=== PATIENT | female | born 1965 | race Caucasian/White ===

== ENCOUNTER 2018-11-09 12:07 | Observation (INO) ==
[2018-11-09] MEDS ORDERED: Aspirin 81 MG TAB.CHEW PO ONE (12:22)
--- NOTE | 2018-11-09 12:45 | Emergency Department Note ---
Disposition Clinical Impression: Symptomatic bradycardia, Chest discomfort Disposition: Admitted As Inpatient Condition: Good Forms: ED Satisfaction Letter Time of Disposition: 15:25 General Adult HPI - General Chief complaint: ED Arrhythmia/Palpitations Stated complaint: GOINS,Dizziness,SOB Time Seen by Provider: 11/09/18 12:12 Source: patient Mode of arrival: ambulatory Limitations: no limitations Nursing Notes Reviewed: Yes Vital Signs Reviewed: Yes - History of Present Illness HPI Narrative: Patient is a 53-year-old female that presents emergency Department with reports of chest discomfort in the center of her chest as well as tingling into her arms and neck. Patient states that she has been feeling very fatigued. 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 Patient states that she has no previous cardiac history. Patient is under more stress at her job. Patient states that she was diagnosed with a concussion approximately 3 or 4 weeks ago. Patient states that since then she has been somewhat more fatigued. Patient states that the majority of her symptoms of been significantly worse over the past 3 days. Pain Scale: 0 - Related Data Previous Rx's Medication Instructions Recorded Sulfacetamide Sodium 10% OPTH 1 drop BOTH EYES QID #1 bottle 07/13/15 [Bleph 10] Allergies Allergy/AdvReac Type Severity Reaction Status Date / Time No Known Allergies Allergy Verified 03/15/17 18:35 All systems ED: reviewed and negative except as stated. Constitutional: Denies: fever Cardiovascular: Reports: chest pain. Denies: palpitations Respiratory: Reports: dyspnea Gastrointestinal: Denies: nausea, vomiting Genitourinary: Denies: urgency, dysuria, frequency Neurological: Reports: paresthesias. Denies: weakness, numbness Past Medical History - Past Medical History Medical history: Reports: hypertension Psychiatric history: Reports: no psych history - Social History Smoking Status: Never smoker Smokeless Tobacco Status: No Alcohol use: Reports: occasionally Drug use: Reports: none Physical Exam - General Limitations: no limitations General appearance: alert, in no apparent distress - Head Head exam: atraumatic, normocephalic - Eye Eye exam: Present: normal appearance, EOMI - Neck Neck exam: Present: normal inspection, full ROM, trachea midline - Respiratory Respiratory exam: Present: normal lung sounds bilaterally. Absent: respiratory distress, wheezes - Cardiovascular Cardiovascular exam: Present: regular rate, normal rhythm, normal heart sounds, +S1, +S2 - Abdominal Exam Abdominal exam: Present: soft, Non-Tender, normal bowel sounds - Neurological Exam Neurological exam: Present: alert, oriented X3 - Expanded Neurological Exam Speech: Present: fluid speech Cranial nerves: EOM function (II, III, IV, ): Normal, facial sensation (V): Normal, facial palsy (VII): Normal, gag reflex (IX): Normal, spinal accessory function (XI): Normal, tongue deviation (XII): Normal Cerebellar function: finger to nose: Normal, heel to sheppard: Normal Motor strength - LUE: 5/5 Motor strength - RUE: 5/5 Motor strength - LLE: 5/5 Motor strength - RLE: 5/5 Upper motor neuron exam: pronator drift: Absent bilaterally Sensory exam upper extremity: light touch: Normal Sensory exam lower extremity: light touch: Normal Coma Scale Eye Opening: Spontaneous Coma Scale Motor Response: Obeys Commands Coma Scale Verbal Response: Oriented Coma Scale Total: 15 - Psychiatric Psychiatric exam: Present: normal affect, normal mood - Skin Skin exam: Present: warm, dry, intact Course Vital Signs Temperature 98.1 F 11/09/18 12:20 Pulse Rate 68 11/09/18 12:20 Respiratory Rate 11/09/18 12:20 Blood Pressure 142/91 11/09/18 12:20 O2 Sat by Pulse Oximetry 99 11/09/18 12:20 Temperature 98.1 F 11/09/18 12:20 Pulse Rate 68 11/09/18 12:20 Respiratory Rate 11/09/18 12:20 Blood Pressure 142/91 11/09/18 12:20 O2 Sat by Pulse Oximetry 99 11/09/18 12:20 Oxygen Delivery Oxygen Delivery Room Air Medical Decision Making - [facility] Narrative Medical decision making narrative: Due the patient is not emergency Department with reports of chest discomfort we will obtain basic laboratory testing as well as EKG and chest x-ray. Chest x-ray does not show any acute cardiopulmonary process. The EKG showed a sinus rhythm. However during the patient's stay she did become intermittently bradycardic and during these times of bradycardia is when she had a sensation in her chest and became symptomatic. The patient was placed on pacer pads but was not actively paced. Medications at bedside. We will admit the patient to the hospital for further evaluation and management of her symptomatically tachycardia. Patient does take atenolol in the morning and states that she did take it this morning as well. Called and spoke with cardiology and they will see the patient in consult. Patient will be admitted to the hospital at this time for further evaluation and management. Called and spoke the admitting hospitalist Dr. Barrientos and she is accepted the patient to their service. Patient be admitted to the hospital at this time. - Medical Records Medical records reviewed: Yes I reviewed the patient's medical records. - Lab Data Lab results reviewed: Yes I reviewed the patient's lab results. Result diagrams: 11/09/18 12:30 11/09/18 12:30 Lab Results 11/09/18 11/09/18 11/09/18 Range/Units 12:30 12:30 12:30 WBC 9.4 (4.3-11.1) K/mcL RBC 4.76 (3.82-4.97) M/mcL Hgb 15.3 (11.5-15.4) g/dL Hct 44.4 (35.3-44.9) % MCV 93.3 (83.0-100.0) fL MCH 32.1 (28.0-33.3) pg MCHC 34.5 (31.6-35.5) g/dL RDW 12.7 (11.5-14.5) % Plt Count 237 (140-400) K/mcL MPV 8.8 L (9.4-12.4) fL Immature Gran % 0.2 (0-4) % Seg Neutrophils % 61.1 % Lymphocytes % 26.0 % Monocytes % 10.8 % Eosinophils % 1.4 % Basophils % 0.5 % Neutrophils # 5.7 (1.6-8.9) K/mcL Lymphocytes # 2.4 (0.6-4.6) K/mcL Monocytes # 1.0 (0.0-1.3) K/mcL Eosinophils # 0.1 (0.0-0.6) K/mcL Basophils # 0.1 (0.0-0.2) K/mcL PT 11.8 (9.4-12.1) Seconds INR 1.0 APTT 29.0 (26.0-36.0) Seconds D-Dimer 310 (0-500) ng/mLFEU Carboxyhemoglobin (0-5) % Sodium 141 (136-145) mEq/L Potassium 4.0 (3.5-5.1) mEq/L Chloride 107 (98-107) mEq/L Carbon Dioxide 24 (23-29) mEq/L BUN 14 (6-20) mg/dL Creatinine 0.89 (0.60-1.20) mg/dL Est GFR ( Amer) > 60 (> 60) Est GFR (Non-Af Amer) > 60 (> 60) BUN/Creatinine Ratio 16 (6-26) Glucose 103 (70-105) mg/dL Calculated Osmolality 293 (280-300) Calcium 10.0 (8.6-10.3) mg/dL Troponin I < 0.03 (< 0.04) ng/mL TSH (0.340-5.600) mcIU/mL 11/09/18 11/09/18 Range/Units 13:33 13:33 WBC (4.3-11.1) K/mcL RBC (3.82-4.97) M/mcL Hgb (11.5-15.4) g/dL Hct (35.3-44.9) % MCV (83.0-100.0) fL MCH (28.0-33.3) pg MCHC (31.6-35.5) g/dL RDW (11.5-14.5) % Plt Count (140-400) K/mcL MPV (9.4-12.4) fL Immature Gran % (0-4) % Seg Neutrophils % % Lymphocytes % % Monocytes % % Eosinophils % % Basophils % % Neutrophils # (1.6-8.9) K/mcL Lymphocytes # (0.6-4.6) K/mcL Monocytes # (0.0-1.3) K/mcL Eosinophils # (0.0-0.6) K/mcL Basophils # (0.0-0.2) K/mcL PT (9.4-12.1) Seconds INR APTT (26.0-36.0) Seconds D-Dimer (0-500) ng/mLFEU Carboxyhemoglobin 2.4 (0-5) % Sodium (136-145) mEq/L Potassium (3.5-5.1) mEq/L Chloride (98-107) mEq/L Carbon Dioxide (23-29) mEq/L BUN (6-20) mg/dL Creatinine (0.60-1.20) mg/dL Est GFR ( Amer) (> 60) Est GFR (Non-Af Amer) (> 60) BUN/Creatinine Ratio (6-26) Glucose (70-105) mg/dL Calculated Osmolality (280-300) Calcium (8.6-10.3) mg/dL Troponin I (< 0.04) ng/mL TSH 0.718 (0.340-5.600) mcIU/mL - Radiology Data Radiology results reviewed: Yes I reviewed the patient's radiology results. Chest X-Ray 11/09/18 12:22 IMPRESSION: No evidence of acute cardiopulmonary disease. D/ / Jarred Mckeon MD / Jarred Mckeon MD Interpreting Provider: Jarred Mckeon MD - EKG Data EKG #1 EKG attestation: Yes I reviewed and interpreted this EKG. EKG results narrative: EKG shows a sinus rhythm at a rate of 69 bpm, ND interval 160, QRS duration 96, QTc of 424. There is no evidence of STEMI on EKG. Attestation Statement - Attestation Attestation: Resident Attestation: I examined this patient and my medical decision making was reviewed with the Resident Physician. I agree with the documented findings, disposition and treatment plan as described except to the extent set forth below. We independently had [id number] contact with the patient.EKG reviewed with resident physician. Agree with documentation. Patient presenting for evaluation of chest discomfort, shortness of breath, associated dizziness. Patient states symptoms been going on for last several days. Worse with exertion. 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 On the monitor the patient has had bradycardia into the 40s. Patient has become symptomatic with it. Patient's blood pressure has remained stable and greater than 100 systolic. Patient will be placed on the cardiac pads and further workup will be performed as well as consulted cardiology. Patient will require admission for further monitoring and intervention.
[2018-11-09 12:46] LABS: Basophils # 0.1 K/mcL (0.0-0.2); Basophils % 0.5 %; Eosinophils # 0.1 K/mcL (0.0-0.6); Eosinophils % 1.4 %; Hematocrit 44.4 % (35.3-44.9); Hemoglobin 15.3 g/dL (11.5-15.4); Immature Granulocytes % 0.2 % (0-4); Lymphocytes # 2.4 K/mcL (0.6-4.6); Mean Corpuscular HGB Conc 34.5 g/dL (31.6-35.5); Mean Corpuscular Hemoglobin 32.1 pg (28.0-33.3); Mean Corpuscular Volume 93.3 fL (83.0-100.0); Mean Platelet Volume 8.8 fL (9.4-12.4); Monocytes % 10.8 %; Neutrophils # 5.7 K/mcL (1.6-8.9); Platelet Count 237 K/mcL (140-400); Red Blood Count 4.76 M/mcL (3.82-4.97); Red Cell Distribution Width 12.7 % (11.5-14.5); Segmented Neutrophils % 61.1 %; White Blood Count 9.4 K/mcL (4.3-11.1)
[2018-11-09 12:55] LABS: Prothrombin Time 11.8 Seconds (9.4-12.1)
[2018-11-09 13:05] LABS: BUN/Creatinine Ratio 16 (6-26); Blood Urea Nitrogen 14 mg/dL (6-20); Carbon Dioxide 24 mEq/L (23-29); Chloride 107 mEq/L (98-107); Glucose 103 mg/dL (70-105); Osmolality,Calculated 293 (280-300); Sodium 141 mEq/L (136-145); Troponin I < 0.03 ng/mL (< 0.04); eGFR For African Americans > 60 (> 60); eGFR For Non-African Americans > 60 (> 60)
[2018-11-09] MEDS ORDERED: Naloxone 0.4 MG/ML INJ IVP PRN (16:00)
--- NOTE | 2018-11-09 16:09 | Internal Med History&Physical ---
Date of Encounter: 11/09/18 Time of Encounter: 16:07 Internal Medicine - H&P: HPI Chief complaint: chest pain Admitted From: Home Plans for Post Hospital Care: Home History of present illness: Ms. Swain is a 53 year old female with PMH HTN presented to [facility] on 11/09/18 with complaints of chest pain, shortness of breath and malaise. She was placed in observation status for further workup and treatment. Information obtained from chart review and patient report. She reports intermittent chest pain and shortness of breath over the last 3 days. Symptoms worse with exertion. Chest pain is described as as a dull ache and sharp at times. Does not radiate. Symptoms come and go. She also reports generalized weakness malaise over the last 2 days as well. 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 No chest pain or shortness of breath all my exam. Past Med Surg Social Fam HX - Past Medical History Medical history: hypertension Psychiatric history: no psych history - Social History Smoking Status: Never smoker Smokeless Tobacco Status: No Alcohol use: occasionally Drug use: none Internal Medicine - H&P: Meds Atenolol [Tenormin] 50 mg PO DAILY 11/09/18 [History] Allergy/AdvReac Type Severity Reaction Status Date / Time No Known Allergies Allergy Verified 03/15/17 18:35 All Systems PM: A 10-system review of systems was performed and is negative for pertinent findings except as documented above in the HPI. - Constitutional Constitutional: no chills, no fever(s), no night sweats - EENT Eyes: no change in vision, no discharge, no pain, no photophobia Ears: no ear discharge, no ear pain, no tinnitus Nose, mouth and throat: no dysphagia, no nasal discharge, no neck pain, no sore throat - Cardiovascular Cardiovascular ROS IM: no chest pain, no diaphoresis, no dyspnea, no lightheadedness, no palpitations, no syncope - Respiratory Respiratory: no cough, no dyspnea, no wheezing, no excessive phlegm production - Gastrointestinal Gastrointestinal: no abdominal pain, no diarrhea, no hematemesis, no hematochezia, no melena, no nausea, no vomiting - Genitourinary Genitourinary: no change in urinary stream, no dysuria, no flank pain, no hematuria - Musculoskeletal Musculoskeletal ROS IM: no numbness, no tingling - Integumentary Integumentary IM: no rash, no unusual bruising - Neurological Neurological ROS: no confusion, no convulsions, no focal weakness, no numbness, no tingling, no tremor(s) - Hematologic/Lymphatic Hematologic/Lymphatic: no easy bruising - Constitutional Vitals: Temp Pulse Resp BP Pulse Ox 98.1 F 79 16 116/91 97 11/09/18 12:20 11/09/18 15:00 11/09/18 15:00 11/09/18 15:00 11/09/18 15:00 General appearance: Present: A&O X 3, pleasant, no acute distress Exam: . - Head Head exam: Present: atraumatic, normocephalic - Eye Eye exam: Present: PERRL, conjuntiva pink, sclera anicteric Pupils: Present: PERRL - Neck Neck exam general surgery: Present: supple, trachea midline. Absent: lymphadenopathy - Respiratory Respiratory exam: Present: CTAB. Absent: accessory muscle use, rales, rhonchi, wheezes - Cardiovascular Cardiovascular exam: Present: RRR, +S1, +S2. Absent: diastolic murmur, gallop, rubs, systolic murmur - GI/Abdominal GI/Abdominal exam: Present: normal bowel sounds, soft, no peritoneal signs. Absent: distended, tenderness - Extremities Exam Extremities exam: Present: warm, radial pulses palpable and symmetrical. Absent : calf tenderness, cyanotic, pedal edema - Neurological Exam Neurological exam: Present: CN II-XII intact, oriented X3, no focal deficits. Absent: pronater drift, facial droop, speech deficit - Skin Skin exam: Present: dry, intact Internal Med - H&P Results - Labs CBC & Chem 7: 11/09/18 12:30 11/09/18 12:30 Labs: Short CBC 11/09/18 Range/Units 12:30 WBC 9.4 (4.3-11.1) K/mcL Hgb 15.3 (11.5-15.4) g/dL Hct 44.4 (35.3-44.9) % Plt Count 237 (140-400) K/mcL Neutrophils # 5.7 (1.6-8.9) K/mcL BMP 11/09/18 12:30 Sodium 141 Potassium 4.0 Chloride 107 Carbon Dioxide 24 BUN 14 Creatinine 0.89 Glucose 103 Calcium 10.0 Cardiac Enzymes 11/09/18 Range/Units 12:30 Troponin I < 0.03 (< 0.04) ng/mL - Impressions ITS Impressions Chest X-Ray 11/09/18 12:22 IMPRESSION: No evidence of acute cardiopulmonary disease. D/ / Jarred Mckeon MD / Jarred Mckeon MD Interpreting Provider: Jarred Mckeon MD - Assessment and Plan (1) Chest discomfort Current Visit: Yes Status: Acute Assessment and plan: presented with chest pain with associated SOB. No known CAD. CXR unremarkable. She will troponin negative. EKG without acute ST changes. Check echo. Stress test. (2) Bradycardia Current Visit: Yes Status: Acute Assessment and plan: with HRs in the 40s at times. Holding home BB. Monitor on telemetry (3) HTN (hypertension) Current Visit: Yes Status: Acute Assessment and plan: per hx. BP controlled at this time. Holding home BB with bradycardia. Monitor BP. Qualifiers: Hypertension type: essential hypertension Qualified Code(s): I10 - Essential (primary) hypertension (4) DVT prophylaxis Current Visit: Yes Status: Acute Assessment and plan: SCDs - Time Spent With Patient Total time spent is greater than 50% in coordination of care (as documented) at patient's floor/unit and/or counseling patient:
[2018-11-09 16:54] LABS: Triiodothyronine (T3) Total 1.18 ng/mL (0.87-1.78)
[2018-11-10 06:23] LABS: Hematocrit 42.2 % (35.3-44.9); Hemoglobin 14.3 g/dL (11.5-15.4); Mean Corpuscular HGB Conc 33.9 g/dL (31.6-35.5); Mean Corpuscular Hemoglobin 31.8 pg (28.0-33.3); Mean Corpuscular Volume 93.8 fL (83.0-100.0); Mean Platelet Volume 8.5 fL (9.4-12.4); Platelet Count 209 K/mcL (140-400); Red Cell Distribution Width 12.9 % (11.5-14.5); White Blood Count 7.3 K/mcL (4.3-11.1)
[2018-11-10 06:45] LABS: Alanine Aminotransferase 14 Units/L (7-52); Albumin/Globulin Ratio 1.4 (1.1-2.2); Alkaline Phosphatase 46 Units/L (34-104); Aspartate Amino Transferase 18 Units/L (13-39); BUN/Creatinine Ratio 16 (6-26); Bilirubin,Total 0.5 mg/dL (0.3-1.0); Blood Urea Nitrogen 14 mg/dL (6-20); Calcium 9.4 mg/dL (8.6-10.3); Carbon Dioxide 26 mEq/L (23-29); Chloride 108 mEq/L (98-107); Globulin 2.9 g/dL (2.4-3.5); Glucose 90 mg/dL (70-105); Osmolality,Calculated 292 (280-300); Potassium 3.9 mEq/L (3.5-5.1); Sodium 141 mEq/L (136-145); Total Protein 6.9 g/dL (6.4-8.9); eGFR For African Americans > 60 (> 60); eGFR For Non-African Americans > 60 (> 60)
[2018-11-10 06:51] VITALS: BP 123/77
[2018-11-10] MEDS ORDERED: Regadenoson 0.4 MG/5 ML SYRINGE IVP ONE (07:19)
--- NOTE | 2018-11-10 09:33 | Cardiology Consult Note ---
<Chel Rhodes - Last Filed: 11/10/18 09:29> Date of Encounter: 11/10/18 Time of Encounter: 09:00 Assessment and Plan (1) Chest pain Status: Acute Atypical chest pain symptoms. No ischemic ECG changes noted. Troponin negative x3. No chest pain observed during exercise stress test, was able to reach beyond target HR. Nuclear stress test pending, if negative, no further inpatient testing recommended. Risk factor modification recommended including heart healthy diet and daily exercise. Close outpatient follow-up with PCP. Qualifiers: Chest pain type: precordial pain Qualified Code(s): R07.2 - Precordial pain (2) Bradycardia Status: Acute Suspect secondary to atenolol--on 50 mg daily at home for HTN. Blood pressures have largely been controlled since admission; consider alternative antihypertensive for BP control--low dose ACEi, ARB if needed. Discussion w patient/family: The assessment and plan as outlined above was discussed with the patient and/or family members who expressed understanding and agreement. All questions were answered. Thank you for involving us in the care of your patient. Please call with any questions. The patient will be discussed and reviewed with Dr. Arciniega; changes to be made accordingly. History of Present Illness Consult date: 11/10/18 Requesting physician: Carolann Chapin Consult reason: symptomatic bradycardia Chief complaint: Fatigue, chest pain History of present illness: Ms. Swain is a 53 year old female with PMHx significant of HTN who presented to the ED with complaints of left-sided dull chest pain. Associated symptoms incl ude shortness of breath and significant fatigue since Sunday. Chest pain does not radiate and is not related to activity or heavy exertion. Nothing seems to improve or worsen chest pain, seems to "come and go." Patient reports that she has been working in the heat lately and thinks this may have caused her symptoms. Additionally, concussion several weeks ago (negative CT head, MRA head), a crockpot lid fell on her head. Reportedly, HR dropped to as low as 43 in the ED, strips not available for review. ECG reviewed, HR 60's, no ischemic changes noted. Past Med Surg Social Fam HX - Past Medical History Attestation: Yes The following information was validated with the patient. Source: patient Medical history: hypertension Psychiatric history: no psych history - Past Surgical History Surgical History: no surgical history - Social History Smoking Status: Never smoker Smokeless Tobacco Status: No Alcohol use: occasionally Drug use: none - Family History Father Age: 79 Living Status: Still Living Hx Family Cardiac Disorders: Yes (RI at 52yrs old) Mother Living Status: Still Living Medications and Allergies amLODIPine [Norvasc] 5 mg PO DAILY #30 tablet 11/10/18 [Rx] Allergy/AdvReac Type Severity Reaction Status Date / Time No Known Allergies Allergy Verified 03/15/17 18:35 All Systems Review: The remainder of the systems were reviewed and are negative - Cardiovascular Cardiovascular: as per HPI Physical Examination Vital Signs, Last 4 Hours Temp Pulse Resp BP Pulse Ox 11/10/18 06:46 98.2 F 74 16 123/77 95 General: Conversant, No Apparent Distress HEENT: Atraumatic, Normocephaly, Mucus Membranes Moist Neck: No JVD, Normal carotid pulses Cardiac: Reg Rate and Rhythm, Normal S1 and S2, No Murmur Lungs: Normal Breath Sounds, No Wheeze, Rales, Rhonchi Neuro: Alert and responsive, No focal deficits noted Abdomen: Soft, Non-Tender Skin: No rashes noted on visualized skin Musculoskeletal: No Chest Wall Tenderness Extremities: No Clubbing, No Cyanosis, No Edema, Normal Pulses Results 11/10/18 05:47 11/10/18 05:47 Lab Results 11/09/18 11/09/18 11/09/18 12:30 12:30 12:30 WBC 9.4 Hgb 15.3 Hct 44.4 Plt Count 237 INR 1.0 APTT 29.0 D-Dimer 310 Sodium 141 Potassium 4.0 Chloride 107 Carbon Dioxide 24 BUN 14 Creatinine 0.89 Glucose 103 Calcium 10.0 Total Bilirubin AST ALT Alkaline Phosphatase Troponin I < 0.03 B-Natriuretic Peptide TSH 11/09/18 11/09/18 11/09/18 13:33 16:18 22:04 WBC Hgb Hct Plt Count INR APTT D-Dimer Sodium Potassium Chloride Carbon Dioxide BUN Creatinine Glucose Calcium Total Bilirubin AST ALT Alkaline Phosphatase Troponin I < 0.03 < 0.03 B-Natriuretic Peptide TSH 0.718 11/10/18 11/10/18 11/10/18 05:47 05:47 05:47 WBC 7.3 Hgb 14.3 Hct 42.2 Plt Count 209 INR APTT D-Dimer Sodium 141 Potassium 3.9 Chloride 108 H Carbon Dioxide 26 BUN 14 Creatinine 0.89 Glucose 90 Calcium 9.4 Total Bilirubin 0.5 AST 18 ALT 14 Alkaline Phosphatase 46 Troponin I B-Natriuretic Peptide 27 TSH Active Medications Naloxone HCl (Narcan) 0.4 mg IVP Q2MPRN PRN PRN Reason: SEE COMMENTS Stop: 05/11/19 16:01 - Imaging and Cardiology Stress Test: pending Echo: pending Other Results: tele review: avg HR=68 SR - EKG Interpretation EKG results cardiology: personally reviewed Consult Discharge Plan - Plan Instructions: Amlodipine (By mouth), Chronic Hypertension (DC), Bradycardia (DC) Referrals: Casie Thorne MD [Primary Care Provider] - (A request has been submitted for a follow-up appointment with your primary care provider. Their office will contact you to schedule a date & time for a follow-up appointment. Inna goldman call the office if you are not contacted within the next 3-4 days. ) Prescriptions: amLODIPine [Norvasc] 5 mg PO DAILY #30 tablet < A - Last Filed: 11/10/18 17:56> Date of Encounter: 11/10/18 - Attending Attestation I have personally performed a face to face evaluation on this patient. I have reviewed and agree with the documented findings and care plan as documented by the PIPE WELDER. History and Exam by me shows: 53-year-old very pleasant female with history of hypertension, perimenopausal, who presented with atypical chest pain. Her father had heart attack at the age of 53. Also noted to be bradycardic to the 40s. She takes atenolol for hypertension. AAOX3 in NAD at the bedside Hemodynamically stable Cardiopulmonary exam revealed S1, S2, no murmur; clear lungs Rhythm reviewed - sinus rhythm, no acute ST T changes Echo preserved EF, no significant valvular heart disease Exercise nuclear stress test negative for ischemia. Impression/plan: 1. Atypical chest pain. Unlikely to have obstructive CAD given negative exercise nuclear stress test 2. Family history of CAD. We benefit from coronary calcium scoring for prognostication and risk profile management. We will set her up for cardiac CT as outpatient 3. Hypertension. Discontinue atenolol. Start lisinopril 5 mg daily Thanks, Juan Arciniega MD FAC Assessment and Plan Discussion w patient/family: The assessment and plan as outlined above was discussed with the patient and/or family members who expressed understanding and agreement. All questions were answered. Thank you for involving us in the care of your patient. Please call with any questions. History of Present Illness History of present illness: Ms. Swain is a 53 year old female All Systems Review: The remainder of the systems were reviewed and are negative Results 11/10/18 05:47 11/10/18 05:47 Lab Results 11/09/18 11/10/18 11/10/18 22:04 05:47 05:47 WBC 7.3 Hgb 14.3 Hct 42.2 Plt Count 209 Sodium 141 Potassium 3.9 Chloride 108 H Carbon Dioxide 26 BUN 14 Creatinine 0.89 Glucose 90 Calcium 9.4 Total Bilirubin 0.5 AST 18 ALT 14 Alkaline Phosphatase 46 Troponin I < 0.03 B-Natriuretic Peptide 11/10/18 05:47 WBC Hgb Hct Plt Count Sodium Potassium Chloride Carbon Dioxide BUN Creatinine Glucose Calcium Total Bilirubin AST ALT Alkaline Phosphatase Troponin I B-Natriuretic Peptide 27
--- NOTE | 2018-11-10 10:21 | Discharge Summary ---
Orders not resulted at time of discharge: Pending orders 11/09/18 16:02 EV echocardiogram Stat 11/09/18 16:04 NM tito perf SPECT multi [NM] Routine Date of Encounter: 11/10/18 Time of Encounter: 10:20 - Discharge Diagnosis (1) Chest discomfort Priority: Primary Status: Resolved Assessment and Plan: presented with chest pain with associated SOB. No known CAD. CXR unremarkable. Serial troponin negative. EKG without acute ST changes. TTE was pending at time of discharge. Cardiology followed (2) HTN (hypertension) Priority: Primary Status: Acute Assessment and Plan: per hx. Home BB stopped on arrival with bradycardia. BP remained well controlled without BP medications. Will gave rx for amlodipine at discharge. Patient has BP monitor at home and will monitor BP and follow-up with PCP Qualifiers: Hypertension type: essential hypertension Qualified Code(s): I10 - Essential (primary) hypertension (3) Bradycardia Priority: Primary Status: Acute Assessment and Plan: with HRs in the 40s at times. Resolved with stopping home BB. Hospital course: Please see assessment and plan for Hospital course - Time Spent with Patient Total time spent providing and/or coordinating discharge services: Time spent: Less than 30 minutes - Discharge Medications Prescriptions: New amLODIPine [Norvasc] 5 mg PO DAILY #30 tablet Discontinued Atenolol [Tenormin] 50 mg PO DAILY Home Medications: amLODIPine [Norvasc] 5 mg PO DAILY #30 tablet 11/10/18 [Rx] Allergies/Adverse Reactions: Allergy/AdvReac Type Severity Reaction Status Date / Time No Known Allergies Allergy Verified 03/15/17 18:35 Date of admission: 11/09/18 16:01 Primary care physician: Casie Thorne MD Consults: 11/09/18 14:29 Consult to Cardiology [CONS] Stat Comment: Consulting Provider: Cardiology Sujatha Reason for Consult: Symptomatic bradycardia Call Completed: Yes Discharging clinician: Carolann Chapin Anticipated date of discharge: 11/10/18 - Constitutional Vitals: Temp Pulse Resp BP Pulse Ox 98.2 F 74 16 123/77 95 11/10/18 06:46 11/10/18 06:46 11/10/18 06:46 11/10/18 06:46 11/10/18 06:46 General appearance: Present: A&O X 3, pleasant, no acute distress Exam: . - Head Head exam: Present: atraumatic, normocephalic - Eye Eye exam: Present: PERRL, conjuntiva pink, sclera anicteric Pupils: Present: PERRL - Neck Neck exam general surgery: Present: supple, trachea midline. Absent: lymphadenopathy - Respiratory Respiratory exam: Present: CTAB. Absent: accessory muscle use, rales, rhonchi, wheezes - Cardiovascular Cardiovascular exam: Present: RRR, +S1, +S2. Absent: diastolic murmur, gallop, rubs, systolic murmur - GI/Abdominal GI/Abdominal exam: Present: normal bowel sounds, soft, no peritoneal signs. Absent: distended, tenderness - Extremities Exam Extremities exam: Present: warm, radial pulses palpable and symmetrical. Absent: calf tenderness, cyanotic, pedal edema - Neurological Exam Neurological exam: Present: CN II-XII intact, oriented X3, no focal deficits. Absent: pronater drift, facial droop, speech deficit - Skin Skin exam: Present: dry, intact - Patient Status Disposition: Home, Self-Care Condition: Good Functional capacity at discharge: independent ambulation Overall status at discharge: patient is back to baseline - Discharge Instructions Instructions: Amlodipine (By mouth), Chronic Hypertension (DC), Bradycardia (DC) Follow Up With: Casie Thorne MD [Primary Care Provider] - (A request has been submitted for a follow-up appointment with your primary care provider. Their office will contact you to schedule a date & time for a follow-up appointment. Please call the office if you are not contacted within the next 3-4 days. ) Forms: Work/School Release - Diet and Activity Activity: resume usual activities as tolerated Diet: advance to your usual diet
== END 2018-11-10 14:40 | disposition home or self-care (01) ==
LOC: 3BNU 12:07 → EMEROOARM 12:07 → 3BNU 16:25
PROVIDERS: ADMIT Internal Medicine Nephrology; ATTEND Internal Medicine Nephrology

== ENCOUNTER 2021-05-14 09:56 | Observation (INO) ==
[2021-05-14] MEDS ORDERED: 0.9 % Sodium Chloride 1,000 ML IVC ONE (10:13)
[2021-05-14 10:44] LABS: Basophils # 0.1 K/mcL (0.0-0.2); Basophils % 0.6 %; Eosinophils # 0.2 K/mcL (0.0-0.6); Eosinophils % 2.4 %; Hematocrit 43.6 % (35.3-44.9); Hemoglobin 14.7 g/dL (11.5-15.4); Immature Granulocytes % 0.1 % (0-4); Lymphocytes # 2.3 K/mcL (0.6-4.6); Lymphocytes % 29.3 %; Mean Corpuscular HGB Conc 33.7 g/dL (31.6-35.5); Mean Corpuscular Hemoglobin 30.9 pg (28.0-33.3); Mean Corpuscular Volume 91.8 fL (83.0-100.0); Mean Platelet Volume 8.5 fL (9.4-12.4); Monocytes # 1.1 K/mcL (0.0-1.3); Monocytes % 13.9 %; Neutrophils # 4.3 K/mcL (1.6-8.9); Platelet Count 235 K/mcL (140-400); Red Blood Count 4.75 M/mcL (3.82-4.97); Red Cell Distribution Width 13.2 % (11.5-14.5); Segmented Neutrophils % 53.7 %; White Blood Count 7.9 K/mcL (4.3-11.1)
[2021-05-14 11:02] LABS: BUN/Creatinine Ratio 17 (6-26); Blood Urea Nitrogen 13 mg/dL (6-20); Calcium 9.7 mg/dL (8.6-10.3); Carbon Dioxide 26 mEq/L (23-29); Chloride 105 mEq/L (98-107); Glucose 101 mg/dL (70-105); Osmolality,Calculated 286 (280-300); Potassium 3.8 mEq/L (3.5-5.1); Sodium 138 mEq/L (136-145); Troponin I < 0.03 ng/mL (< 0.04); eGFR For African Americans > 60 (> 60); eGFR For Non-African Americans > 60 (> 60)
[2021-05-14] MEDS ORDERED: Aspirin 325 MG TABLET PO ONE (11:21)
[2021-05-14] MEDS ORDERED: Nitroglycerin 0.4 MG TAB.SUBL SL PRN (11:55)
[2021-05-14] MEDS ORDERED: Naloxone 0.4 MG/ML INJ IVP PRN (12:49)
[2021-05-14] MEDS ORDERED: Ondansetron 4 MG/2 ML VIAL IVP PRN (12:49)
[2021-05-14] MEDS ORDERED: Melatonin 3 MG TABLET PO PRN (12:49)
[2021-05-14] MEDS ORDERED: 0.9 % Sodium Chloride 1,000 ML IVC SCH (13:00)
[2021-05-14] MEDS ORDERED: 0.9 % Sodium Chloride 1,000 ML ONE (13:03)
[2021-05-14] MEDS: Isosorbide MONOnitrate (24 HR) 30 MG TAB.ER.24H PO SCH (20:44)
[2021-05-14] MEDS ORDERED: Ibuprofen 600 MG TABLET PO ONE (21:30)
[2021-05-15 03:41] LABS: Basophils % 0.5 %; Eosinophils # 0.2 K/mcL (0.0-0.6); Eosinophils % 3.1 %; Hematocrit 39.5 % (35.3-44.9); Immature Granulocytes % 0.3 % (0-4); Lymphocytes # 2.6 K/mcL (0.6-4.6); Lymphocytes % 33.3 %; Mean Corpuscular HGB Conc 32.7 g/dL (31.6-35.5); Mean Corpuscular Hemoglobin 30.5 pg (28.0-33.3); Mean Corpuscular Volume 93.4 fL (83.0-100.0); Mean Platelet Volume 8.6 fL (9.4-12.4); Neutrophils # 3.9 K/mcL (1.6-8.9); Platelet Count 218 K/mcL (140-400); Red Blood Count 4.23 M/mcL (3.82-4.97); Red Cell Distribution Width 13.7 % (11.5-14.5); Segmented Neutrophils % 49.8 %; White Blood Count 7.8 K/mcL (4.3-11.1)
[2021-05-15 03:58] LABS: BUN/Creatinine Ratio 22 (6-26); Blood Urea Nitrogen 15 mg/dL (6-20); Calcium 9.1 mg/dL (8.6-10.3); Carbon Dioxide 23 mEq/L (23-29); Chloride 107 mEq/L (98-107); Chol/HDL Ratio 2.7 (0-4.9); Cholesterol 158 mg/dL (< 200); Glucose 97 mg/dL (70-105); HDL Cholesterol 58 mg/dL (40-59); LDL Cholesterol,Calculated 76 mg/dL (< 100); Magnesium 1.8 mg/dL (1.6-2.6); Osmolality,Calculated 285 (280-300); Potassium 3.6 mEq/L (3.5-5.1); Sodium 137 mEq/L (136-145); Triglycerides 118 mg/dL (< 150); eGFR For African Americans > 60 (> 60); eGFR For Non-African Americans > 60 (> 60)
[2021-05-15 04:00] LABS: Hemoglobin 12.9 g/dL (11.5-15.4)
[2021-05-15] MEDS ORDERED: *HR* Enoxaparin 40 MG/0.4 ML SYRINGE SQ SCH (06:00)
[2021-05-15 07:48] VITALS: BP 127/79; PULSE 77; TEMP 98.6; O2SAT 95
[2021-05-15] MEDS ORDERED: Patient Taking Own Medication 1 EACH IH SCH (09:00)
[2021-05-15] MEDS ORDERED: Fluticasone Propionate Nasal 50 MCG/SPRAY BOTTLE NS SCH (09:00)
[2021-05-15] MEDS: Isosorbide MONOnitrate (24 HR) 30 MG TAB.ER.24H PO SCH (09:03)
== END 2021-05-15 12:33 | disposition home or self-care (01) ==
LOC: 3BNU 09:56 → EMEROOARM 09:56 → SUATTDRO 11:49 → 3BNU 13:19
PROVIDERS: ADMIT Hospitalist; ATTEND Family Medicine